=== PATIENT | female | born 1950 ===

== ENCOUNTER 2019-11-15 12:16 | Outpatient (CLI) | payer OTHER | END 2019-11-15 12:18 | disposition home or self-care (01) | LOC: RAD 12:16 | DX: M54.41 Lumbago with sciatica, right side (principal); M51.36 Other intervertebral disc degeneration, lumbar region; M41.56 Other secondary scoliosis, lumbar region; M47.24 Other spondylosis with radiculopathy, thoracic region; M47.12 Other spondylosis with myelopathy, cervical region ==